=== PATIENT | female | born 1990 | race Caucasian/White ===

== ENCOUNTER 2017-08-26 12:14 | Emergency (ER) | payer SELFPAY ==
[~2017-08-26] VITALS: Ht 157.5 cm; Wt 79.4 kg
--- NOTE | 2017-08-26 14:08 | PHYS DOC ---
Past History Past Medical History: Anxiety, Migraines Past Surgical History: No Surgical History Alcohol Use: Occasionally Drug Use: None Adult General Chief Complaint Chief Complaint: ANXIETY/PANIC ATTACK HPI HPI Patient is a 27 year old F who presents after an episode of slurred speech and dizziness. Initially she states that she has had significant anxiety with difficulty at work and stress at home. This afternoon after being told by her mentor that they "needed to talk about how she was doing at work," she became dizzy and nauseated. She was told that she was slurring her speech. Prior to evaluation her symptoms had resolved without treatment. She states that her only residual symptom is a headache. She does have a history of Migraines. She does not feel that this headache is different from previous headaches. It is mainly frontal and she describes it as mild. She does not have other associated symptoms. She has no other exacerbating or alleviating factors. Review of Systems Review of Systems Constitutional: Denies fever or chills [] Eyes: Denies change in visual acuity, redness, or eye pain [] HENT: Denies nasal congestion or sore throat [] Respiratory: Denies cough or shortness of breath [] Cardiovascular: No additional information not addressed in HPI [] GI: Denies abdominal pain, nausea, vomiting, bloody stools or diarrhea [] : Denies dysuria or hematuria [] Musculoskeletal: Denies back pain or joint pain [] Integument: Denies rash or skin lesions [] Neurologic: Denies focal weakness or sensory changes [] Endocrine: Denies polyuria or polydipsia [] All other systems were reviewed and found to be within normal limits, except as documented in this note. Family History Family History No significant family history reported Current Medications Current Medications Medications were reviewed Allergies Allergies Allergies Coded Allergies Type Severity Reaction Last Updated Verified hydrocodone Allergy Intermediate Rash 08/26/17 Yes Physical Exam Physical Exam Constitutional: Well developed, well nourished, no acute distress, non-toxic appearance. [] HENT: Normocephalic, atraumatic, bilateral external ears normal, oropharynx moist, no oral exudates, nose normal. [] Eyes: PERRLA, EOMI, conjunctiva normal, no discharge. [] Neck: Normal range of motion, no tenderness, supple, no stridor. [] Cardiovascular:Heart rate regular rhythm, no murmur [] Lungs & Thorax: Bilateral breath sounds clear to auscultation [] Abdomen: Bowel sounds normal, soft, no tenderness, no masses, no pulsatile masses. [] Skin: Warm, dry, no erythema, no rash. [] Back: No tenderness, no CVA tenderness. [] Extremities: No tenderness, no cyanosis, no clubbing, ROM intact, no edema. [] Neurologic: Alert and oriented X 3, normal motor function, normal sensory function, no focal deficits noted. [] Psychologic: Affect normal, judgement normal, mood normal. [] Current Patient Data Vital Signs Vital Signs Date Time Temp Pulse Resp B/P (MAP) Pulse Ox O2 Delivery O2 Flow Rate FiO2 08/26/17 13:43 92 20 124/82 (96) 97 Room Air 08/26/17 12:14 98.0 EKG EKG [] Radiology/Procedures Radiology/Procedures [] Course & Med Decision Making Course & Med Decision Making Pertinent Labs and Imaging studies reviewed. (See chart for details) Labs and imaging were declined. Dragon Disclaimer Dragon Disclaimer This electronic medical record was generated, in whole or in part, using a voice recognition dictation system. Departure Departure: Impression: Primary Impression: Anxiety Disposition: 01 HOME, SELF-CARE Condition: STABLE Patient Instructions: Anxiety and Panic Attacks Additional Instructions: Reena was seen in the emergency department for headache. No emergency medical condition was found on history or physical exam. She was advised follow-up with her primary care doctor as soon as possible for further management. She was also encouraged to return to the emergency room if she develops new or worsening symptoms. SHIRA DOAN MD Aug 26, 2017 14:08
[2017-08-26 14:11] VITALS: BP 135/83
[2017-08-26] MEDS ORDERED: IBUPROFEN 600 MG TABLET. PO ONE (14:15)
== END 2017-08-26 14:14 | disposition home or self-care (01) ==
LOC: ER 12:14
DX: F41.9 Anxiety disorder, unspecified (principal); G43.909 Migraine, unspecified, not intractable, without status migrainosus; Z88.5 Allergy status to narcotic agent
CPT/HCPCS: 99284